=== PATIENT | female | born 1975 ===

== ENCOUNTER 2024-09-29 09:29 | Emergency (ER) | payer OTHER ==
[2024-09-29] MEDS: Ketorolac 30 MG/ML SDV IVPUSH ONE (09:57)
[2024-09-29] MEDS: Lidocaine 5% 700 MG Patch TOP ONE (12:24)
== END 2024-09-29 12:25 | disposition home or self-care (01) ==
LOC: DL.ED 09:29
DX: S22.42XA Multiple fractures of ribs, left side, initial encounter for closed fracture (principal); Z88.0 Allergy status to penicillin; W01.0XXA Fall on same level from slipping, tripping and stumbling without subsequent striking against object, initial encounter
CPT/HCPCS: 71250; 96374; 99283-25; A9270-GY; J1885